=== PATIENT | female | born 1995 | race Caucasian/White ===

== ENCOUNTER 2019-08-19 23:10 | Emergency (ER) | payer OTHER ==
[~2019-08-19] VITALS: Ht 170.2 cm; Wt 65.8 kg
--- NOTE | 2019-08-19 23:10 | NUR ---
23F PRESENTS TO ED WITH C/O BUG BITE LLE. DENIES SOB/COUGH. DENIES LOC. PMHX: DENIES RX: DENIES NKA
[2019-08-19 23:12] VITALS: BP 125/76
[2019-08-19 23:15] VITALS: BP 125/76
--- NOTE | 2019-08-19 23:38 | NUR ---
DANIEL DONALD AT BEDSIDE.
[2019-08-19] MEDS ORDERED: SULFAMETH/TRIMETH DS 800/160MG 1 TAB PO ONE (23:40)
[2019-08-19] MEDS ORDERED: IBUPROFEN 800 MG TAB PO ONE (23:40)
[2019-08-19] MEDS ORDERED: CEPHALEXIN 500 MG CAP PO ONE (23:40)
--- NOTE | 2019-08-19 23:57 | NUR ---
Patient discharged with v/s stable. Written and verbal after care instructions given and explained. Patient alert, oriented and verbalized understanding of instructions. Ambulatory with steady gait. All questions addressed prior to discharge. ID band removed. Patient advised to follow up with PMD. Rx of BACTRIM, KEFLEX, MOTRIN given. Patient educated on indication of medication including possible reaction and side effects. Opportunity to ask questions provided and answered.
== END 2019-08-19 23:57 | disposition home or self-care (01) ==
LOC: MED 23:10
DX: L03.116 Cellulitis of left lower limb (principal)
CPT/HCPCS: 99284